=== PATIENT | male | born 1995 | race African-American/Black ===

== ENCOUNTER 2021-01-15 08:39 | Emergency (ER) | payer OTHER ==
[2021-01-15 08:45] VITALS: BP 140/85; PULSE 72; RESP 18; TEMP 97.1
--- NOTE | 2021-01-15 09:12 | ED ---
General Adult HPI - General Stated complaint: Covid symptoms Time Seen by Provider: 01/15/21 08:42 Source: patient, family, RN notes reviewed Mode of arrival: ambulatory Limitations: no limitations - History of Present Illness Initial comments: This a 25-year-old male presents emergency Department with chief complaint of COVID-19 symptoms. Patient states been sick for 1 week with cough congestion bodyaches fevers and chills. Patient hollie smoker history he states that her coworker was recently sick around him. Patient has a shortness breath or chest pain. - Related Data Allergies Allergy/AdvReac Type Severity Reaction Status Date / Time No Known Allergies Allergy Verified 01/15/21 08:45 Review of Systems ROS Statement: Those systems with pertinent positive or pertinent negative responses have been documented in the HPI. ROS Other: All systems not noted in ROS Statement are negative. Past Medical History Past Medical History: No Reported History History of Any Multi-Drug Resistant Organisms: None Reported Past Surgical History: No Surgical Hx Reported Past Psychological History: No Psychological Hx Reported Smoking Status: Current every day smoker Past Alcohol Use History: Daily Past Drug Use History: None Reported General Exam Limitations: no limitations General appearance: alert, in no apparent distress Head exam: Present: atraumatic, normocephalic, normal inspection Eye exam: Present: normal appearance, PERRL, EOMI. Absent: scleral icterus, conjunctival injection, periorbital swelling ENT exam: Present: normal exam, normal oropharynx, mucous membranes moist Neck exam: Present: normal inspection, full ROM. Absent: tenderness, meningismus, lymphadenopathy Respiratory exam: Present: normal lung sounds bilaterally. Absent: respiratory distress, wheezes, rales, rhonchi, stridor Cardiovascular Exam: Present: regular rate, normal rhythm, normal heart sounds. Absent: systolic murmur, diastolic murmur, rubs, gallop, clicks Course Vital Signs 01/15/21 08:40 Temperature 97.1 F L Pulse Rate 72 Respiratory 18 Rate Blood Pressure 140/85 O2 Sat by Pulse 100 Oximetry Medical Decision Making - Medical Decision Making Patient has COVID-19. Patient was discharged in stable condition return parameters were discussed. - Lab Data Lab Results 01/15/21 Range/Units 08:47 Coronavirus (PCR) Detected A (Not Detectd) Disposition Clinical Impression: COVID-19 Disposition: HOME SELF-CARE Condition: Stable Instructions (If sedation given, give patient instructions): Coronavirus Disease 2019 (COVID-19) Additional Instructions: Please return to the Emergency Department if symptoms worsen or any other concerns. Is patient prescribed a controlled substance at d/c from ED?: No Referrals: None,Stated [Primary Care Provider] - 1-2 days Time of Disposition: 09:30
== END 2021-01-15 09:50 | disposition home or self-care (01) ==
LOC: EC 08:39
DX: U07.1 COVID-19 (principal); F17.200 Nicotine dependence, unspecified, uncomplicated
CPT/HCPCS: 87635; 99283

== ENCOUNTER 2021-02-11 12:28 | Emergency (ER) | payer OTHER ==
[2021-02-11 12:38] VITALS: BP 149/92; PULSE 74; RESP 16; TEMP 98.8
[2021-02-11] MEDS ORDERED: BACITRACIN OINT 1 EACH PACKET TOPICAL ONE (12:45)
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
== END 2021-02-11 13:01 | disposition home or self-care (01) ==
LOC: EC 12:28
DX: S00.511A Abrasion of lip, initial encounter (principal); S00.211A Abrasion of right eyelid and periocular area, initial encounter; F17.200 Nicotine dependence, unspecified, uncomplicated; W51.XXXA Accidental striking against or bumped into by another person, initial encounter; Y99.0 Civilian activity done for income or pay
CPT/HCPCS: 99283

== ENCOUNTER 2023-04-04 06:55 | Inpatient (IN) | payer MEDICAID, OTHER ==
--- NOTE | 2023-04-04 07:11 | ED ---
Psych HPI - General Source: patient, police, EMS, RN notes reviewed Mode of arrival: EMS Limitations: no limitations - History of Present Illness MD Complaint: altered mental status <Marifer Lux - Last Filed: 04/04/23 13:34> <Adam Vance - Last Filed: 04/04/23 14:30> - General Chief Complaint: Psychiatric Symptoms Stated Complaint: Psychiatric issue Time Seen by Provider: 04/04/23 07:04 - History of Present Illness Initial Comments: This is a 27 year old male who presents to the emergency department for psychiatric evaluation. Patient was at the [employer], where he has been several times before and the attendant is familiar with him. Today the patient reportedly exhibited bizarre behavior, prompting the attendant to call police. Patient was aggressive and rambling about nonsensical things and they were concerned about him being manic. The attendant also heard him making suicidal statements, however police and EMS have not heard this. He was talking about the 8th chilkat, the downfall of the world and demons. He also said that he had "cracked the code". He refused vitals by EMS. On examination, patient states that he was just trying to take donations to give to people earlier today, and does not give anymore information. Police found a vape pen on him, but are unsure what was in it. When patient's arrived, she provided more supplemental history. Patient has bipolar disorder and schizophrenia and has not slept in 3 days. He is also re fusing to take his medication. His has been trying to get him into [facility], however he is refusing and continues saying that people are out to get him. He also did not recognize his when she arrived, and introduced himself to her. (Marifer Lux) - Related Data Allergies Allergy/AdvReac Type Severity Reaction Status Date / Time No Known Allergies Allergy Verified 01/15/21 08:45 Review of Systems ROS Other: All systems not noted in ROS Statement are negative. <Marifer Lux - Last Filed: 04/04/23 13:34> ROS Other: All systems not noted in ROS Statement are negative. <Adam Vance - Last Filed: 04/04/23 14:30> ROS Statement: Those systems with pertinent positive or pertinent negative responses have been documented in the HPI. Past Medical History Past Medical History: No Reported History History of Any Multi-Drug Resistant Organisms: None Reported Past Surgical History: No Surgical Hx Reported Past Psychological History: No Psychological Hx Reported Smoking Status: Current every day smoker Past Alcohol Use History: Occasional Past Drug Use History: None Reported <Marifer Lux - Last Filed: 04/04/23 13:34> General Exam Limitations: altered mental status General appearance: alert Head exam: Present: atraumatic, normocephalic, normal inspection Respiratory exam: Present: normal lung sounds bilaterally. Absent: respiratory distress, wheezes, rales, rhonchi, stridor Cardiovascular Exam: Present: regular rate, normal rhythm, normal heart sounds. Absent: systolic murmur, diastolic murmur, rubs, gallop, clicks Neurological exam: Present: alert, oriented X3, CN II-XII intact Psychiatric exam: Present: agitated, manic Skin exam: Present: warm, dry, intact, normal color. Absent: rash <Marifer Lux - Last Filed: 04/04/23 13:34> Course Vital Signs 04/04/23 06:58 Temperature 98.5 F Pulse Rate 104 H Respiratory 20 Rate Blood Pressure 136/89 O2 Sat by Pulse 100 Oximetry Medical Decision Making <Marifer Lux - Last Filed: 04/04/23 13:34> <Adam Vance - Last Filed: 04/04/23 14:30> - Medical Decision Making This is a 27-year-old male who presents to the emergency department for psychiatric evaluation. Was pt. sent in by a medical professional or institution? @ -No Did you speak to anyone other than the patient for history? @ -EMS and police provided the majority of the history. Did you review nursing and triage notes? @ -Yes, and I agree, it is accurate with regards to the patient's symptoms. Were old charts reviewed? @ -No Differential Diagnosis? @ -Differential Mental Health: Depression, anxiety, bipolar, psychosis, schizophrenia, borderline personality, situational depression, adjustment disorder, behavioral disorder, brain tumor, malingering, substance abuse, encephalopathy, medication reaction, dementia, hypothyroidism, degenerative neurologic disorder, lupus.... This is not meant to be all-inclusive list EKG interpreted by me (3pts min.)? @ -Not obtained X-rays interpreted by me (1pt min.)? @ -Not obtained CT interpreted by me (1pt min.)? @ -Not obtained U/S interpreted by me (1pt. min.)? @ -Not obtained What testing was considered but not performed? (CT, X-rays, U/S, labs)? Why? @ -None What meds were considered but not given? Why? @ -None Did you discuss the management of the patient with other professionals? @ -Yes, Tucker with EPS, who advised that the patient will be admitted inv oluntarily to the psychiatric unit at this facility. Did you reconcile home meds? @ -No Was smoking cessation discussed for >3mins.? @ -No Was critical care preformed (if so, how long)? @ -No Were there social determinants of health that impacted care today? How? (Iker elessness, low income, unemployed, alcoholism, drug addiction, transportation, low edu. Level, literacy, decrease access to med. care, alf, rehab)? @ -No Was there de-escalation of care discussed even if they declined? (Discuss DNR or withdrawal of care, Hospice)? @ -No What co-morbidities impacted this encounter? (DM, HTN, Smoking, COPD, CAD, Cancer, CVA, Hep., AIDS, mental health diagnosis, sleep apnea, morbid obesity)? @ -Bipolar disorder, schizophrenia Was patient admitted / discharged? @ -Patient was initially aggressive with staff and yelling expletives. He was subsequently given Ativan 1mg, Haldol 5mg, and Benadryl 50mg. BAT was within legal limits at 0.022. The patient did calm down substantially following medication administration. He fell asleep, and after he was calm and arousable, he was evaluated by EPS. EPS advised that the patient does meet criteria for inpatient psychiatric hospitalization. He is experiencing a manic episode with psychotic features. Patient will be admitted to the psychiatric unit at this facility on an involuntary basis. Clinical certification filled out by ED attending, Dr. Vance. Undiagnosed new problem with uncertain prognosis? @ -None Drug Therapy requiring intensive monitoring for toxicity (Heparin, Nitro, Insulin, Cardizem)? @ -None Were any procedures done? @ -None Diagnosis/symptom? @ -Manic episode with psychotic symptoms Acute, or Chronic, or Acute on Chronic? @ -Acute Uncomplicated (without systemic symptoms) or Complicated (systemic symptoms)? @ -Uncomplicated Side effects of treatment? @ -None Exacerbation, Progression, or Severe Exacerbation] @ -Not applicable Poses a threat to life or bodily function? @ -Yes, he poses a risk to himself in his current state. (Marifer Lux) I filled out a clinical certification for the patient's admission (Adam Vance) - Lab Data Lab Results 04/04/23 04/04/23 Range/Units 12:53 13:32 Urine Opiates Screen Not Detected (NotDetected) Ur Oxycodone Screen Not Detected (NotDetected) Urine Methadone Screen Not Detected (NotDetected) Ur Barbiturates Screen Not Detected (NotDetected) U Tricyclic Antidepress Not Detected (NotDetected) Ur Phencyclidine Scrn Not Detected (NotDetected) Ur Amphetamines Screen Not Detected (NotDetected) U Methamphetamines Scrn Not Detected (NotDetected) U Benzodiazepines Scrn Detected H (NotDetected) Urine Cocaine Screen Not Detected (NotDetected) U Marijuana (THC) Screen Detected H (NotDetected) Influenza Type A (PCR) Not Detected (Not Detectd) Influenza Type B (PCR) Not Detected (Not Detectd) RSV (PCR) Not Detected (Not Detectd) SARS-CoV-2 (PCR) Not Detected (Not Detectd) Disposition <Marifer Lux - Last Filed: 04/04/23 13:34> Time of Disposition: 14:20 <Adam Vnace - Last Filed: 04/04/23 14:30> Clinical Impression: Manic episode, severe with psychotic symptoms Disposition: ADMITTED IP TO THIS HOSP Referrals: None,Stated [Primary Care Provider] - 1-2 days
[2023-04-04] MEDS: diphenhydrAMINE 50 MG/ML 1 ML VIAL IM STA (07:17)
[2023-04-04] MEDS: LORazepam 2 MG/ML INJ IM STA (07:18)
[2023-04-04] MEDS: HALOPERIDOL LACTATE 5 MG/ML 1 ML VIAL IM STA (07:18)
[2023-04-04 13:20] LABS: Amphetamine Screen,Urine Not Detected (NotDetected); Barbiturate Screen,Urine Not Detected (NotDetected); Benzodiazepines Screen,Urine Detected (NotDetected); Cocaine Screen,Urine Not Detected (NotDetected); Methadone Screen, Urine Not Detected (NotDetected); Opiate Screen,Urine Not Detected (NotDetected); Oxycodone Screen, Urine Not Detected (NotDetected); Phencyclidine Screen,Urine Not Detected (NotDetected); Tricyclic Antidepressant,Urine Not Detected (NotDetected); Urn Cannabinoid Scrn Detected (NotDetected)
[2023-04-04] MEDS: NICOTINE 14MG/24HR PATCH TRANSDERM STA ×2 (13:25→19:45)
[2023-04-04] MEDS ORDERED: HALOPERIDOL LACTATE 5 MG/ML 1 ML VIAL IM PRN (22:04)
[2023-04-04] MEDS ORDERED: LORazepam 1 MG TAB PO PRN (22:04)
[2023-04-04] MEDS ORDERED: MAG HYDROX/AL HYDROX/SIMETH 30 ML CUP PO PRN (22:04)
[2023-04-04] MEDS ORDERED: MAGNESIUM HYDROXIDE 2,400 MG/30 ML CUP PO PRN (22:04)
[2023-04-04] MEDS ORDERED: LORazepam 2 MG/ML INJ IM PRN (22:04)
[2023-04-04] MEDS ORDERED: haloperidoL 5 MG TAB PO PRN (22:04)
[2023-04-04] MEDS ORDERED: IBUPROFEN 600 MG TAB PO PRN (22:04)
[2023-04-04] MEDS ORDERED: ACETAMINOPHEN TAB 325 MG TAB PO PRN (22:04)
[2023-04-04] MEDS ORDERED: QUEtiapine 100 MG TAB PO PRN (22:08)
--- NOTE | 2023-04-05 04:42 | P.MDCNMH ---
History of Present Illness H&P Date: 04/04/23 Chief Complaint: Medical evaluation 27-year-old male with schizophrenia bipolar disorder Patient was brought in for evaluation due to abnormal behavior. During my interview with the patient he did not make any sense he was talking about demons and how people trying to get him people. Apparently his in the ED reported that he has not slept in few days and she was trying to get him to [facility] however he was refusing. airplane cabin attendant called the police on him who is very familiar with him however describes bizarre behavior almost manic Patient denies any medical concerns at this time he denies any fevers chills nausea vomiting abdominal pain chest pain shortness of breath changes in bowel or urinary habits Patient admits to smoking and marijuana denies any heavy alcohol review of systems Pertinent positives as noted in HPI. All other systems were reviewed and are negative on exam Constitutional: No acute distress, conversant, pleasant Eyes: Anicteric sclerae, moist conjunctiva, Pupils equal round reactive to light ENMT: NC/AT Oropharynx clear, no erythema, or exudates Lungs: Clear to auscultation Clear to percussion Normal respiratory effort, no accessory muscle use Cardiovascular: Heart regular in rate and rhythm, No murmurs, gallops, or rubs No peripheral edema Abdominal: Soft Nontender, no guarding, rebound or rigidity Abdomen moving with respiration Normoactive bowel sounds Extremities: No digital cyanosis No clubbing Pedal pulses intact and symmetrical Radial pulses intact and symmetrical No calf tenderness Psychiatric: Alert and oriented to person, place and time Neuro Muscles Strength 5/5 in all 4 extremities Sensation to light touch grossly present throughout Cranial nerves II-XII grossly intact Past Medical History Past Medical History: No Reported History History of Any Multi-Drug Resistant Organisms: None Reported Past Surgical History: No Surgical Hx Reported Past Anesthesia/Blood Transfusion Reactions: No Reported Reaction Past Psychological History: No Psychological Hx Reported Smoking Status: Current every day smoker, Vaper Past Alcohol Use History: Daily Additional Past Alcohol Use History / Comment(s): patient reports drinking 3 'tall boys' of beer daily Past Drug Use History: Marijuana - Past Family History Father Family Medical History: Unable to Obtain Mother Family Medical History: Unable to Obtain Medications and Allergies Home Medications Medication Instructions Recorded Confirmed Type No Known Home Medications 04/04/23 04/04/23 History Allergies Allergy/AdvReac Type Severity Reaction Status Date / Time No Known Allergies Allergy Verified 04/04/23 16:09 Physical Exam Vitals: Vital Signs Temp Pulse Pulse Resp BP BP Pulse Ox 04/04/23 23:15 97.8 F 100 18 126/81 100 04/04/23 22:28 98.0 F 85 16 121/77 97 04/04/23 18:54 98.1 F 98 18 128/86 100 04/04/23 06:58 98.5 F 104 H 20 136/89 100 Intake and Output 04/04/23 04/04/23 04/05/23 14:59 22:59 06:59 Other: Weight 65.402 kg Cranial Nerve Examination - Cranial Nerves Cranial Nerve II- Optic: Intact Cranial Nerve III- Oculomotor: Intact Cranial Nerve IV- Trochlear: Intact Cranial Nerve V- Trigeminal: Intact Cranial Nerve - Abducens: Intact Cranial Nerve VII- Facial: Intact Cranial Nerve VIII- Auditory: Intact Cranial Nerve IX- Glossopharyngeal: Intact Cranial Nerve X- Vagus: Intact Cranial Nerve XI- Accessory: Intact Cranial Nerve XII- Hypoglossal: Intact Results CBC & Chem 7: 04/05/23 09:03 04/05/23 09:03 Labs: Abnormal Lab Results - Last 24 Hours (Table) 04/04/23 Range/Units 12:53 U Benzodiazepines Scrn Detected H (NotDetected) U Marijuana (THC) Screen Detected H (NotDetected) Assessment and Plan Assessment: electrolyte imbalance with hyperkalemia 5.7 and hypercalcemia 10.6 one-time dose of IM Lasix 20 mg Repeat labs in the morning Patient currently asymptomatic Bizarre behavior schizophrenia and bipolar disorder Management per psych Thank you for this consultation
[2023-04-05] MEDS: NICOTINE 14MG/24HR PATCH TRANSDERM SCH (06:04)
[2023-04-05 10:14] LABS: Basophils % (A) 1 %; Eosinophils # (A) 0.1 k/uL (0-0.7); Eosinophils % (A) 1 %; HCT 54.2 % (39.0-53.0); Lymphocytes # (A) 1.6 k/uL (1.0-4.8); Lymphocytes % (A) 46 %; MCH 32.4 pg (25.0-35.0); MCHC 33.2 g/dL (31.0-37.0); MCV 97.7 fL (80.0-100.0); Mean Platelet Volume 8.2; Monocytes # (A) 0.3 k/uL (0-1.0); Monocytes % (A) 8 %; Neutrophils # (A) 1.4 k/uL (1.3-7.7); Neutrophils % (A) 41 %; Platelet Count 230 k/uL (150-450); RBC 5.55 m/uL (4.30-5.90); RDW 12.8 % (11.5-15.5); WBC 3.5 k/uL (3.8-10.6)
[2023-04-05 10:24] LABS: ALT 29 U/L (4-49); AST 77 U/L (17-59); African American GFR (CKD) >90 (>60 ml/min/1.73 sqM); Albumin 5.2 g/dL (3.5-5.0); Alkaline Phosphatase 77 U/L (38-126); Anion Gap 9 mmol/L; Blood Urea Nitrogen 11 mg/dL (9-20); Calcium 10.6 mg/dL (8.4-10.2); Carbon Dioxide 31 mmol/L (22-30); Chloride 99 mmol/L (98-107); Glucose 99 mg/dL (74-99); Non-African American GFR(CKD) >90 (>60 ml/min/1.73 sqM); Potassium 5.7 mmol/L (3.5-5.1); Sodium 139 mmol/L (137-145); Total Bilirubin 1.7 mg/dL (0.2-1.3); Total Protein 8.5 g/dL (6.3-8.2)
[2023-04-05] MEDS ORDERED: LORazepam 1 MG TAB PO PRN ×3 (11:27→18:15)
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
[2023-04-05] MEDS: ARIPiprazole 5 MG TAB PO SCH (12:51)
[2023-04-05 15:52] LABS: Chol/HDL Ratio 1.59 Ratio; LDL Cholesterol,Calculated 45.7 mg/dL (0.0-131.0); VLDL Calculation 7.68 mg/dL (5.00-40.00)
[2023-04-05] MEDS ORDERED: OLANZapine 10 MG VIAL IM PRN (18:30)
[2023-04-05] MEDS: diphenhydrAMINE 50 MG CAP PO STA (18:38)
[2023-04-05] MEDS: traZODone HCL 50 MG TAB PO SCH (21:03)
[2023-04-05] MEDS: FUROSEMIDE 10 MG/ML 2 ML VIAL IM ONE (21:03)
[2023-04-06 07:05] VITALS: RESP 16
--- NOTE | 2023-04-06 11:04 | P.PN ---
Progress Note - Text Progress Note Date: 04/06/23 Interval History: Patient was seen wandering the hallways and was directable and agreeable to chris alvarenga with ghost writer in the office. Patient states that he feels the medicine has "got his mind right" and he feels he is ready to go home. He stated he knows he needs to stay away from negative thoughts and negative people. Patient appears to be more clear today. Explained the court process to the patient, patient agreeable with the plan. At this time patient denies any suicidal or homical ideations, intent or plan. Patient denies any auditory, visual hallucinations and denies any paranoia or delusions. Patient denies any side effects from the medications and has been compliant with meds. MENTAL STATUS EXAM: General Appearance: Patient appears to be stated age, is alert, directable, and attempts to cooperate. Patient appears to have fair hygiene and grooming. male, tall and thin, braided hair, liang and mustache. Behavior: Patient is seated without any agitated behavior. Better eye contact today. Speech: Patient's speech is fluent and nonpressured. Mood/Affect: Patient reports their mood is ok, affect is congruent and constricted. Suicidality/Homicidality: Patient denies having any homicidal ideation intent or plan. Denies any suicidal ideations intent or plan Perceptions: Patient denies any visual hallucinations and denies any auditory hallucinations Though content/process: There is no evidence of delusional thought content and thought process is mildly improving Memory and concentration: AOX3, grossly intact for the purposes of this session. Judgment and insight: poor, mildly improving IMPRESSIONS: schizophrenia cannabis use disorder nicotine dependance r/o alcohol use disorder PLAN: -Patient is admitted under involuntary status to [facility] for stabilization of psychiatric symptoms and safety. Patient has not signed adult voluntary form and medication consent and is placed in patient's chart. -Medications: increase Abilify 7.5mg po daily for psychosis, trazadone 50 qhs po for sleep -Ativan and Haldol PRN for agitation/aggression -Started thiamine, MVM for etoh use -CIWA protocol with Ativan PRN for ETOH withdrawal -NRT - nicotine patch -SW on board for discharge planning. Encourage patient to participate in groups to work on coping skills. Will await deferral and court date. hopeful for discharge tuesday if he continues to improve.
[2023-04-06 13:15] LABS: African American GFR (CKD) >90 (>60 ml/min/1.73 sqM); Anion Gap 9 mmol/L; Blood Urea Nitrogen 9 mg/dL (9-20); Calcium 10.2 mg/dL (8.4-10.2); Carbon Dioxide 29 mmol/L (22-30); Chloride 99 mmol/L (98-107); Glucose 98 mg/dL (74-99); Non-African American GFR(CKD) >90 (>60 ml/min/1.73 sqM); Potassium 4.1 mmol/L (3.5-5.1); Sodium 137 mmol/L (137-145)
[2023-04-07] MEDS: OLANZapine 5 MG TAB PO PRN (03:13)
[2023-04-07 07:18] VITALS: BP 141/88; PULSE 133; TEMP 98
[2023-04-07] MEDS: ARIPiprazole 5 MG TAB PO SCH (08:13)
--- NOTE | 2023-04-07 10:11 | P.PN ---
Progress Note - Text Progress Note Date: 04/07/23 Interval History: Patient was seen wandering the hallways and was directable and agreeable to chris alvarenga with appeals writer in the office. Patient states he feels much better today. he claims that he is not fitting in well with other patients on the unit as he beleives they have more severe mental illness and issues than he does. States that the other patients outbursts has his anxiety pretty high. Patient appears clear today. Explained the court process to the patient, patient agreeable with the plan, and his tax associate attorney will be coming in tomorrow, and patient plans to do the deferral process. At this time patient denies any suicidal or homical ideations, intent or plan. Patient denies any auditory, visual hallucinations and denies any paranoia or delusions. Patient denies any side effects from the medications and has been compliant with meds. MENTAL STATUS EXAM: General Appearance: Patient appears to be stated age, is alert, directable, and attempts to cooperate. Patient appears to have fair hygiene and grooming. male, tall and thin, braided hair, liang and mustache. Behavior: Patient is seated without any agitated behavior. Better eye contact today. Speech: Patient's speech is fluent and nonpressured. Mood/Affect: Patient reports their mood is ok, affect is congruent and constricted. Suicidality/Homicidality: Patient denies having any homicidal ideation intent or plan. Denies any suicidal ideations intent or plan Perceptions: Patient denies any visual hallucinations and denies any auditory hallucinations Though content/process: There is no evidence of delusional thought content and thought process is mildly improving Memory and concentration: AOX3, grossly intact for the purposes of this session. Judgment and insight: mildly improving IMPRESSIONS: schizophrenia cannabis use disorder nicotine dependance r/o alcohol use disorder PLAN: -Patient is admitted under involuntary status to [facility] for stabilization of psychiatric symptoms and safety. Patient has not signed adult voluntary form and medication consent and is placed in patient's chart. -Medications: increase Abilify 10mg po daily for psychosis, increase trazadone 100mg qhs po for sleep -Ativan and Haldol PRN for agitation/aggression -thiamine, MVM for etoh use -NRT - nicotine patch -SW on board for discharge planning. Encourage patient to participate in groups to work on coping skills. hopeful for discharge jeri if he continues to improve and signs deferral tomorrow with tax associate attorney.
[2023-04-07] MEDS: traZODone HCL 100 MG TAB PO SCH (20:22)
[2023-04-08] MEDS: ARIPiprazole 10 MG TAB PO SCH (08:26)
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
== END 2023-04-08 14:21 | disposition home or self-care (01) | DRG 885 ==
LOC: EC 06:55 → 3MHU 21:48
PROVIDERS: ADMIT Psychiatry & Neurology Psychiatry; ATTEND Psychiatry & Neurology Psychiatry
DX: F29 Unspecified psychosis not due to a substance or known physiological condition (principal); E83.52 Hypercalcemia; F10.10 Alcohol abuse, uncomplicated; F12.10 Cannabis abuse, uncomplicated; E87.5 Hyperkalemia; Z11.52 Encounter for screening for COVID-19; F17.290 Nicotine dependence, other tobacco product, uncomplicated; Z71.6 Tobacco abuse counseling; Z71.41 Alcohol abuse counseling and surveillance of alcoholic; Z59.6 Low income; Z71.51 Drug abuse counseling and surveillance of drug abuser; Z81.8 Family history of other mental and behavioral disorders
CPT/HCPCS: 80048; 80053; 80061; 80306; 82075; 83036; 84443; 85025; 87636; 96372; 99285

== ENCOUNTER 2023-04-24 01:02 | Emergency (ER) | payer OTHER ==
--- NOTE | 2023-04-24 01:18 | ED ---
ENT HPI - General Chief complaint: Dental/Oral Stated complaint: Toothache Time Seen by Provider: 04/24/23 01:10 Source: patient Mode of arrival: ambulatory Limitations: no limitations - History of Present Illness Initial comments: 27-year-old male presenting with chief complaint of dental pain. Patient has a known cavity to the left upper side of the jaw, with a missing filling. He does not currently have a dentist. He has been having shooting pain to this area, and now he states that the area feels somewhat swollen. He recently got insurance and is trying to find a dentist. No fevers. No difficulty breathing or swallowing. No drooling or voice changes. No trismus. - Related Data Previous Rx's Medication Instructions Recorded ARIPiprazole [Abilify] 10 mg PO DAILY 30 Days #30 tab 04/08/23 Nicotine 14Mg/24Hr Patch [Habitrol] 1 patch TRANSDERM DAILY 14 Days 04/08/23 #14 patch traZODone HCL [Desyrel] 100 mg PO HS PRN 30 Days #30 tab 04/08/23 Amoxic-Pot Clav 875-125Mg 1 tab PO BID 7 Days #14 tab 04/24/23 [Augmentin 875-125] Allergies Allergy/AdvReac Type Severity Reaction Status Date / Time No Known Allergies Allergy Verified 04/24/23 01:09 Review of Systems ROS Statement: Those systems with pertinent positive or pertinent negative responses have been documented in the HPI. ROS Other: All systems not noted in ROS Statement are negative. Past Medical History Past Medical History: No Reported History History of Any Multi-Drug Resistant Organisms: None Reported Past Surgical History: No Surgical Hx Reported Past Anesthesia/Blood Transfusion Reactions: No Reported Reaction Past Psychological History: No Psychological Hx Reported Smoking Status: Current every day smoker, Vaper Past Alcohol Use History: Daily Past Drug Use History: Marijuana - Past Family History Father Family Medical History: Unable to Obtain Mother Family Medical History: Unable to Obtain General Exam Limitations: no limitations General appearance: alert, in no apparent distress Head exam: Present: atraumatic, normocephalic Eye exam: Present: normal appearance Expanded Mouth exam: Present: normal external inspection, tongue normal. Absent: drooling, trismus, muffled voice Teeth exam: Present: dental caries, dental tenderness # Throat exam: normal inspection Neck exam: Present: normal inspection Respiratory exam: Absent: respiratory distress Cardiovascular Exam: Present: regular rate Neurological exam: Present: alert, oriented X3 Psychiatric exam: Present: normal affect, normal mood Skin exam: Present: warm, dry Course Vital Signs 04/24/23 01:07 Temperature 97.7 F Pulse Rate 84 Respiratory 18 Rate Blood Pressure 150/89 O2 Sat by Pulse 100 Oximetry Medical Decision Making - Medical Decision Making Was pt. sent in by a medical professional or institution (, [facility], [employer], urgent care, hospital, or fdc...) When possible be specific @ -No Did you speak to anyone other than the patient for history (EMS, parent, family, police, friend...)? What history was obtained from this source @ -No Did you review nursing and triage notes (agree or disagree)? Why? @ -I reviewed and agree with nursing and triage notes Were old charts reviewed (outside hosp., previous admission, EMS record, old EKG, old radiological studies, urgent care reports/EKG's, fdc records)? Report findings @ -No old charts were reviewed Differential Diagnosis (chest pain, altered mental status, abdominal pain women, abdominal pain men, vaginal bleeding, weakness, fever, dyspnea, syncope, headache, dizziness, GI bleed, back pain, seizure, CVA, palpatations, mental health, musculoskeletal)? @ -Differential includes toothache, dental abscess, Andi's angina, this is not an all-inclusive list EKG interpreted by me (3pts min.). @ -As above X-rays interpreted by me (1pt min.). @ -None done CT interpreted by me (1pt min.). @ -None done U/S interpreted by me (1pt. min.). @ -None done What testing was considered but not performed or refused? (CT, X-rays, U/S, labs)? Why? @ -None What meds were considered but not given or refused? Why? @ -None Did you discuss the management of the patient with other professionals (professionals i.e. [facility] Huynh, [employer], lab, RT, psych nurse, clinical social work aide, electron beam machine welder setter, teacher, human resource officer, family caseworker)? Give summary @ -No Was smoking cessation discussed for >3mins.? @ -No Was critical care preformed (if so, how long)? @ -No Were there social determinants of health that impacted care today? How? (Homelessness, low income, unemployed, alcoholism, drug addiction, transportation, low edu. Level, literacy, decrease access to med. care, alf, rehab)? @ -No Was there de-escalation of care discussed even if they declined (Discuss DNR or withdrawal of care, Hospice)? DNR status @ -No What co-morbidities impacted this encounter? (DM, HTN, Smoking, COPD, CAD, Cancer, CVA, ARF, Chemo, Hep., AIDS, mental health diagnosis, sleep apnea, morbid obesity)? @ -None Was patient admitted / discharged? Hospital course, mention meds given and route, prescriptions, significant lab abnormalities, going to OR and other pertinent info. @ -27-year-old male presenting with chief complaint of dental pain. There is a noted cavity with a missing filling on exam. No red flag features. There is some swelling and tenderness to the cheek over this area. He is started on Augmentin and provided with a dentist to follow-up with. Discharged home. Follow-up with PCP. Report back to ER with any new or worsening symptoms. Discussed return parameters and answered all questions. Patient conveyed verbal understanding and agreed to the plan. I discussed this case in detail with my attending Dr. Garcia Undiagnosed new problem with uncertain prognosis? @ -No Drug Therapy requiring intensive monitoring for toxicity (Heparin, Nitro, Insulin, Cardizem)? @ -No Were any procedures done? @ -No Diagnosis/symptom? @ -Tooth ache, dental abscess Acute, or Chronic, or Acute on Chronic? @ -Acute Uncomplicated (without systemic symptoms) or Complicated (systemic symptoms)? @ -Uncomplicated Side effects of treatment? @ -No Exacerbation, Progression, or Severe Exacerbation? @ -No Poses a threat to life or bodily function? How? (Chest pain, [place], [place], pneumonia, PE, COPD, DKA, ARF, appy, cholecystitis, CVA, Diverticulitis, Homicidal, Suicidal, threat to staff... and all critical care pts) @ -No Disposition Clinical Impression: Toothache, Dental abscess Disposition: HOME SELF-CARE Condition: Good Instructions (If sedation given, give patient instructions): Dental Abscess (ED), Toothache (ED) Additional Instructions: Take Motrin and Tylenol as needed for pain. Report back to ER with any new or worsening symptoms. Please follow up with the [facility]. [id number] [place] [address]. Phone number for new patients or [phone] for existing patients. Prescriptions: Amoxic-Pot Clav 875-125Mg [Augmentin 875-125] 1 tab PO BID 7 Days #14 tab Is patient prescribed a controlled substance at d/c from ED?: No Referrals: None,Stated [Primary Care Provider] - 1-2 days Time of Disposition: 01:18
[2023-04-24] MEDS: ACETAMINOPHEN TAB 325 MG TAB PO STA (01:25)
[2023-04-24] MEDS: IBUPROFEN 400 MG TAB PO STA (01:26)
[2023-04-24 01:36] VITALS: BP 150/89; PULSE 84; RESP 18; TEMP 97.7
== END 2023-04-24 01:37 | disposition home or self-care (01) ==
LOC: EC 01:02
DX: K04.7 Periapical abscess without sinus (principal); F17.290 Nicotine dependence, other tobacco product, uncomplicated; F12.90 Cannabis use, unspecified, uncomplicated
CPT/HCPCS: 99283